=== PATIENT | female | born 1990 | race Caucasian/White ===

== ENCOUNTER 2018-05-08 21:30 | Emergency (ER) | payer OTHER ==
[2018-05-08] MEDS ORDERED: KETOROLAC TROMETHAMINE INJ/PF 30 MG/1 ML SDV IV ONE (22:17)
[2018-05-08] MEDS ORDERED: ONDANSETRON HCL INJ/PF 4 MG/2 ML SDV IV ONE (22:17)
[2018-05-08] MEDS ORDERED: NORMAL SALINE 1000 ML 1,000 ML IV ONE (22:17)
[2018-05-08 22:33] LABS: ABSOLUTE BASOPHILS # (AUTO) 0.1 10^3/uL (0.0-0.2); ABSOLUTE EOSINOPHILS # (AUTO) 0.1 10^3/uL (0.0-0.6); ABSOLUTE LYMPHOCYTES (AUTO) 2.1 10^3/uL (0.5-4.7); ABSOLUTE MONOCYTES (AUTO) 0.6 10^3/uL (0.1-1.4); ABSOLUTE NEUT (AUTO) 5.4 10^3/uL (1.7-8.2); EOSINOPHILS % (AUTO) 0.8 % (0-6); HEMATOCRIT 37.6 % (36.0-47.0); HEMOGLOBIN 12.9 g/dL (12.0-15.5); LYMPHOCYTES % (AUTO) 25.3 % (13-45); MEAN CORPUSCULAR HEMOGLOBIN 30.7 pg (27.0-33.4); MEAN CORPUSCULAR HGB CONC 34.5 g/dL (32.0-36.0); MEAN CORPUSCULAR VOLUME 89 fl (80-97); MONOCYTES % (AUTO) 7.6 % (3-13); PLATELET COUNT 359 10^3/uL (150-450); RED BLOOD COUNT 4.22 10^6/uL (3.72-5.28); RED CELL DISTRIBUTION WIDTH 12.5 % (11.5-14.0); SEGMENTED NEUTROPHILS % (AUTO) 65.3 % (42-78); TOTAL CELLS COUNTED % (AUTO) 100 %; WHITE BLOOD COUNT 8.3 10^3/uL (4.0-10.5)
[2018-05-08 22:45] LABS: ALANINE AMINOTRANSFERASE 21 U/L (9-52); ALBUMIN 4.4 g/dL (3.5-5.0); ALKALINE PHOSPHATASE 70 U/L (38-126); ANION GAP 10 (5-19); ASPARTATE AMINO TRANSFERASE 18 U/L (14-36); BILIRUBIN,DIRECT 0.1 mg/dL (0.0-0.4); BILIRUBIN,TOTAL 0.3 mg/dL (0.2-1.3); BLOOD UREA NITROGEN 13 mg/dL (7-20); CARBON DIOXIDE 25 mmol/L (22-30); CHLORIDE 106 mmol/L (98-107); CREATINE KINASE 57 U/L (30-135); GLUCOSE 89 mg/dL (75-110); SODIUM 140.5 mmol/L (137-145); TOTAL PROTEIN 7.4 g/dL (6.3-8.2)
--- NOTE | 2018-05-08 22:47 | ER Document Report ---
ED Syncope and Near Syncope - General Chief Complaint: Head Injury Stated Complaint: FALL,HEAD INJURY, NAUSEA VOMITING CONFUSION Time Seen by Provider: 05/08/18 22:10 Mode of Arrival: Stretcher Information source: Patient TRAVEL OUTSIDE OF THE [place] IN LAST 30 DAYS: No - HPI Patient complains to provider of: Fainting Episode witnessed (by whom): No Symptoms prior to episode: Dizziness, Nausea/vomiting Position/Activity at time of episode: Standing Quality of pain: Achy Severity: Moderate Pain Level: 3 Context: Collapsed Injury location: Head Current symptoms: Dizziness, Headache Similar symptoms previously: Yes Recently seen / treated by doctor: Yes Notes: Patient is a 28-year-old female presenting to the emergency room complaining of a syncopal episode that occurred just prior to arrival, patient states she was feeling nauseated and went to the bathroom in case she had to vomit, the next thing she remembers is with her, she has a history of syncopal episodes like this previously, and had a recent change in her psychiatric medications, previously she was taking Lexapro which made her nauseated as well, she was recently changed to prazosin and Zoloft which apparently made her more nauseated , she started these medications yesterday, she is complaining of a headache with lightheadedness and dizziness, denies any neck pain, no numbness or tingling in her extremities, denies being - Related Data Allergies/Adverse Reactions: No Known Drug Allergies Allergy (Verified 05/08/18 21:34) Past Medical History - General Information source: Patient - Social History Smoking Status: Never Smoker Chew tobacco use (# tins/day): No Frequency of alcohol use: Occasional Drug Abuse: None Family History: Reviewed & Not Pertinent Patient has suicidal ideation: No Patient has homicidal ideation: No Renal/ Medical History: Denies: Hx Peritoneal Dialysis Past Surgical History: Reports: Hx Oral Surgery Review of Systems - Review of Systems Constitutional: No symptoms reported EENT: No symptoms reported Cardiovascular: Syncope, Dizziness Respiratory: No symptoms reported Gastrointestinal: No symptoms reported Genitourinary: No symptoms reported Female Genitourinary: No symptoms reported Musculoskeletal: No symptoms reported Skin: No symptoms reported Hematologic/Lymphatic: No symptoms reported Neurological/Psychological: Headaches -: Yes All other systems reviewed and negative Physical Exam - Vital signs Vitals: Temp Pulse Resp BP Pulse Ox 99.4 F 106 H 16 127/77 H 99 05/08/18 21:36 05/08/18 21:36 05/08/18 21:36 05/08/18 21:36 05/08/18 21:36 Interpretation: Normal - General General appearance: Appears well, Alert - HEENT Head: Normocephalic, Atraumatic Eyes: Normal, Other - Tenderness to palpate with slight swelling in the right posterior occipital region Conjunctiva: Normal Extraocular movements intact: Yes Eyelashes: Normal Pupils: PERRL Ears: Normal External canal: Normal Tympanic membrane: Normal Sinus: Normal Nasal: Normal Mouth/Lips: Normal Mucous membranes: Normal Pharynx: Normal Neck: Normal - Respiratory Respiratory status: No respiratory distress Chest status: Nontender Breath sounds: Normal Chest palpation: Normal - Cardiovascular Rhythm: Regular Heart sounds: Normal auscultation Murmur: No - Abdominal Inspection: Normal Distension: No distension Bowel sounds: Normal Tenderness: Nontender Organomegaly: No organomegaly - Back Back: Normal, Nontender - Extremities General upper extremity: Normal inspection, Nontender, Normal color, Normal ROM , Normal temperature General lower extremity: Normal inspection, Nontender, Normal color, Normal ROM , Normal temperature, Normal weight bearing. No: Bettye's sign - Neurological Neuro grossly intact: Yes Cognition: Normal Orientation: AAOx4 Benita Coma Scale Eye Opening: Spontaneous Benita Coma Scale Verbal: Oriented Benita Coma Scale Motor: Obeys Commands Benita Coma Scale Total: 15 Speech: Normal Motor strength normal: LUE, RUE, LLE, RLE Sensory: Normal - Psychological Associated symptoms: Normal affect, Normal mood - Skin Skin Temperature: Warm Skin Moisture: Dry Skin Color: Normal Course - Re-evaluation Re-evalutation: 05/09/18 02:04 Patient resting comfortably, reports feeling much better, nausea and dizziness are resolved, lab and imaging findings discussed at bedside which are unremarkable, patient will be discharged with prescription for Reglan, and instructed to follow-up with her primary care provider and her psychiatrist in the next 1-2 days or return if symptoms worsen, patient acknowledges understanding and agreement with this plan - Vital Signs Vital signs: Temp Pulse Resp BP Pulse Ox 99.4 F 106 H 20 108/67 100 05/08/18 21:36 05/08/18 21:36 05/09/18 01:01 05/09/18 01:01 05/09/18 01:01 - Laboratory Result Diagrams: 05/08/18 22:17 05/08/18 22:17 - Diagnostic Test Radiology reviewed: Image reviewed, Reports reviewed - EKG Interpretation by Me EKG shows normal: Sinus rhythm Rate: Normal Rhythm: NSR Discharge - Discharge Clinical Impression: Nausea Syncope Qualifiers: Syncope type: unspecified Qualified Code(s): R55 - Syncope and collapse Head injury Qualifiers: Encounter type: initial encounter Qualified Code(s): S09.90XA - Unspecified injury of head, initial encounter Condition: Stable Disposition: HOME, SELF-CARE Instructions: Syncopal Episode ([facility]), Nausea or Vomiting, Nonspecific ([facility]), Head Injury Precautions ([facility]) Additional Instructions: Follow up with your primary care provider and your psychiatrist in one to 2 days. Return to the emergency room immediately if symptoms worsen or any additional concerns. Prescriptions: Metoclopramide HCl [Reglan 10 mg Tablet] 1 - 2 tab PO ASDIR PRN #25 tablet PRN Reason:
--- NOTE | 2018-05-08 23:03 | RADIOLOGY REPORT (SQ) ---
EXAM DESCRIPTION: CT HEAD WITHOUT IV CONTRAST COMPLETED DATE/TME: 05/08/2018 22:17 CLINICAL HISTORY: 28 years, Female, head injury COMPARISON: EXAM DESCRIPTION: CLINICAL HISTORY: head injury COMPARISON: None Available TECHNIQUE: Contiguous axial CT images of the head were obtained. Coronal and sagittal reconstructions were created from the axial data. This exam was performed according to our departmental dose-optimization program, which includes automated exposure control, adjustment of the mA and/or kV according to patient size and/or use of iterative reconstruction technique. FINDINGS: There are postsurgical findings but no definite acute bony abnormality. Paranasal sinuses are clear. There is no evidence of acute mass, mass effect, midline shift or hemorrhage. The ventricles and extra-axial CSF spaces are unremarkable. The brain parenchyma appears normal for the patient's age. No definite acute abnormalities of the bones is seen. IMPRESSION: No acute intracranial abnormality. TECHNIQUE: Images stored on PACS. All CT scanners at this facility use dose modulation, iterative reconstruction, and/or weight based dosing when appropriate to reduce radiation dose to as low as reasonably achievable (ALARA). [facility]: Dose Right [facility]: CareDose [facility]: Dose Right [facility]: Teradose 4D [facility]: [employer] LIMITATIONS: None. FINDINGS: IMPRESSION: TECHNICAL DOCUMENTATION: Quality ID # [id number]: Final reports with documentation of one or more dose reduction techniques (e.g., Automated exposure control, adjustment of the mA and/or kV according to patient size, use of iterative reconstruction technique) 2010 [employer]- All Rights Reserved
[2018-05-09] MEDS ORDERED: METOCLOPRAMIDE HCL INJ/PF 10 MG/2 ML SDV IV ONE (00:26)
[2018-05-09 00:54] LABS: APPEARANCE,URINE SLIGHTLY-CLOUDY; BILIRUBIN,URINE NEGATIVE (NEGATIVE); COLOR,URINE YELLOW; GLUCOSE, URINE NEGATIVE (NEGATIVE); KETONES,URINE NEGATIVE (NEGATIVE); LEUKOCYTE ESTERASE,URINE NEGATIVE (NEGATIVE); NITRITE,URINE NEGATIVE (NEGATIVE); PROTEIN,URINE NEGATIVE (NEGATIVE); URINE SPECIFIC GRAVITY 1.027; UROBILINOGEN,URINE NEGATIVE mg/dL (<2.0)
[2018-05-09 02:18] VITALS: BP 116/82
--- NOTE | 2018-05-09 07:35 | EKG REPORT ---
SEVERITY:- NORMAL ECG - SINUS RHYTHM : Confirmed by: Massimo Esparza MD 09-May-2018 07:35:00
== END 2018-05-09 02:24 | disposition home or self-care (01) ==
LOC: ER 21:30
DX: S09.90XA Unspecified injury of head, initial encounter (principal); R11.2 Nausea with vomiting, unspecified; R41.0 Disorientation, unspecified; R55 Syncope and collapse; R51 Headache; R42 Dizziness and giddiness; W19.XXXA Unspecified fall, initial encounter; Y92.002 Bathroom of unspecified non-institutional (private) residence as the place of occurrence of the external cause; Z79.899 Other long term (current) drug therapy
CPT/HCPCS: 93005; 99284; 96361; 96374; 96375; 36415; 82553; 82550; 84703; 85025; 80053; 81001; 70450; 93010; J1885; J2765; J2405; J7030

== ENCOUNTER → 2018-07-10 | Outpatient (CLI) | payer OTHER ==
--- NOTE | 2018-07-10 10:50 | RADIOLOGY REPORT (SQ) ---
EXAM DESCRIPTION: ELBOW LEFT >2 VIEWS COMPLETED DATE/TIME: 07/10/2018 10:03 am REASON FOR STUDY: FALL (ON) (FROM) OTHER STAIRS STEPS, INITIAL ENCOUNTER,PAIN IN LEFT ELBOW W10.8X XA FALL (ON) (FROM) OTHER STAIRS AND STEPS, INITIAL EN M54.6 PAIN IN THORACIC SPINE M54.2 CERVICAL RACHEL COMPARISON: None. NUMBER OF VIEWS: Four views. TECHNIQUE: AP, lateral, and both oblique radiographic images acquired of the left elbow. LIMITATIONS: None. FINDINGS: MINERALIZATION: Normal. BONES: No acute fracture or dislocation. No worrisome bone lesions. JOINT: No effusion. SOFT TISSUES: No soft tissue swelling. No foreign body. OTHER: No other significant finding. IMPRESSION: NEGATIVE STUDY OF THE LEFT ELBOW. NO RADIOGRAPHIC EVIDENCE OF ACUTE INJURY. TECHNICAL DOCUMENTATION: JOB ID: [id number] [employer]- All Rights Reserved Reading location - IP/workstation name: [email or web address]
--- NOTE | 2018-07-10 10:53 | RADIOLOGY REPORT (SQ) ---
EXAM DESCRIPTION: C SP 4 OR 5 VIEWS; LUMBAR SPINE COMPLETE COMPLETED DATE/TIME: 07/10/2018 10:04 am; 07/10/2018 10:20 am REASON FOR STUDY: CERVICALGIA; LBP,FALL (ON) (FROM) OTHER STAIRS AND STEPS, INITIAL ENCOUNTER COMPARISON: None. FINDINGS: Five views cervical spine including obliques: Normal. Normal alignment. Preserved discs and vertebral bodies. Patent neural foramina. Normal soft tissues. Five views lumbar spine including obliques: Normal. Normal alignment. Preserved discs and vertebra l bodies. No pars defect. Normal soft tissues. TECHNICAL DOCUMENTATION: JOB ID: [id number] Reading location - IP/workstation name: [email or web address]
--- NOTE | 2018-07-10 10:53 | RADIOLOGY REPORT (SQ) ---
EXAM DESCRIPTION: C SP 4 OR 5 VIEWS; LUMBAR SPINE COMPLETE COMPLETED DATE/TIME: 07/10/2018 10:04 am; 07/10/2018 10:20 am REASON FOR STUDY: CERVICALGIA; LBP,FALL (ON) (FROM) OTHER STAIRS AND STEPS, INITIAL ENCOUNTER COMPARISON: None. FINDINGS: Five views cervical spine including obliques: Normal. Normal alignment. Preserved discs and vertebral bodies. Patent neural foramina. Normal soft tissues. Five views lumbar spine including obliques: Normal. Normal alignment. Preserved discs and vertebra l bodies. No pars defect. Normal soft tissues. TECHNICAL DOCUMENTATION: JOB ID: [id number] Reading location - IP/workstation name: [email or web address]
--- NOTE | 2018-07-10 11:58 | RADIOLOGY REPORT (SQ) ---
EXAM DESCRIPTION: T SPINE AP/LAT COMPLETED DATE/TIME: 07/10/2018 10:03 am REASON FOR STUDY: PAIN IN THORACIC SPINE,FALL (ON) (FROM) OTHER STAIRS AND STEPS, INITIAL ENC W10.8X XA FALL (ON) (FROM) OTHER STAIRS AND STEPS, INITIAL EN M54.6 PAIN IN THORACIC SPINE M54.2 CERVICAL RACHEL COMPARISON: None. NUMBER OF VIEWS: Two views. TECHNIQUE: AP and lateral radiographic images acquired of the thoracic spine. LIMITATIONS: None. FINDINGS: MINERALIZATION: Normal. ALIGNMENT: Exaggerated thoracic kyphosis. No scoliosis. VERTEBRAE: No fracture or bone lesion. Maintained height, normal segmentation. DISCS: No significant loss of height or significant narrowing. No large osteophytes. HARDWARE: None in the spine. MEDIASTINUM AND SOFT TISSUES: Normal heart size and aortic contour. No soft tissue abnormality. VISUALIZED LUNG ROWLAND: Clear. OTHER: No other significant finding. IMPRESSION: No evidence of acute osseous abnormality. TECHNICAL DOCUMENTATION: JOB ID: [id number] [employer]- All Rights Reserved Reading location - IP/workstation name: [email or web address]
== END ==
LOC: OD 09:34
PROVIDERS: ATTEND Physician Assistant
DX: M54.6 Pain in thoracic spine (principal); M54.2 Cervicalgia; M25.522 Pain in left elbow; M54.5 Low back pain; W10.8XXA Fall (on) (from) other stairs and steps, initial encounter
CPT/HCPCS: 72050; 72070; 72110

== ENCOUNTER → 2018-08-01 | Outpatient (CLI) | payer OTHER ==
--- NOTE | 2018-08-01 13:45 | WOMENS IMAGING REPORT ---
EXAM DESCRIPTION: TRANSVAGINAL ULTRASOUND COMPLETED DATE/TIME: 08/01/2018 12:54 pm REASON FOR STUDY: EXCESSIVE AND FREQUENT MENSTRATION WITH IRREGULAR CYCLE HEAVY VAG BLEEDING N92.1 EXCESSIVE AND FREQUENT MENSTRUATION WITH IRREGULAR CYC COMPARISON: None. TECHNIQUE: Dynamic and static grayscale images acquired of the pelvis via transvaginal approach and recorded on PACS. Additional selected color Doppler and spectral images recorded. LIMITATIONS: None. FINDINGS: UTERUS: Contour normal. No mass. ENDOMETRIAL STRIPE: No focal or generalized thickening. No masses. CERVIX: No nabothian cysts. RIGHT OVARY AND DOPPLER: Ovary not visualized. LEFT OVARY AND DOPPLER: Normal size. No worrisome masses. Normal arterial vascular flow without evide nce for torsion. FREE FLUID: None noted. OTHER: No other significant finding. IMPRESSION: NORMAL TRANSVAGINAL PELVIC ULTRASOUND. TECHNICAL DOCUMENTATION: JOB ID: [id number] [employer]- All Rights Reserved Rev Reading location - IP/workstation name: [email or web address]
== END ==
LOC: WI 11:34
PROVIDERS: ATTEND Physician Assistant
DX: N92.1 Excessive and frequent menstruation with irregular cycle (principal)
CPT/HCPCS: 76830